=== PATIENT | female | born 1990 | race Caucasian/White ===

== ENCOUNTER 2021-01-06 09:59 | Emergency (ER) | payer OTHER, SELFPAY ==
[2021-01-06 10:00] VITALS: BP 110/68; PULSE 62; RESP 16; TEMP 37.8; O2SAT 90; BMI 41.8
[2021-01-06 10:08] VITALS: O2SAT 90
--- NOTE | 2021-01-06 10:23 | EDS_ITS ---
HPI History of Present Illness Chief Complaint: Shortness of Breath Narrative Narrative: Patient presents with cough and shortness of breath she indicates she was symptomatic with cough shortness of breath Sunday she had outpatient Covid test that was done was positive, she has been at home to indicates today the shortness of breath see more she checked her pulse ox at home pulse ox machine she has was 88% came in for evaluation, she has history of hypertension well-controlled no cardiopulmonary past history denies eating and drinking well with some diarrhea no other complaints on exam here her pulse ox is 90% she is awake and alert dry cough temperature is 100 clinically she looks well and she is not coughing [facility] Medical History (Updated 01/06/21 @ 11:[address] Elvis Hsieh MD) ADHD Hypertension Home Medications amlodipine 10 mg PO DAILY 12/01/14 [History Last Taken Unknown] dextroamphetamine-amphetamine [Adderall 30 mg Tablet] 0 mg PO DAILY 12/01/14 [History Last Taken Unknown] hydrochlorothiazide 25 mg PO DAILY 12/01/14 [History Last Taken Unknown] dexamethasone [Decadron] 6 mg PO DAILY #10 tab 01/06/21 [Rx Last Taken Unknown] Allergy/AdvReac Type Severity Reaction Status Date / Time moxifloxacin HCl Allergy Swelling Verified 08/17/16 09:45 [From Avelox] Surgical History (Updated 01/06/21 @ 10:09 by Tammy Nazario) History of hysterectomy Social History Smoking Status: Never smoker ROS [facility] ED Constitutional Constitutional ED: Reports fever(s), subjective, sweats and other; Denies chills or weight loss Eyes Eyes: Denies blurry vision or change in vision ENT ENT ED: Denies ear pain Cardiovascular Cardiovascular: Denies chest pain or palpitations Respiratory/Chest Respiratory/Chest: Reports dry cough and dyspnea Gastrointestinal Gastrointestinal: Reports diarrhea; Denies abdominal pain, nausea or vomiting Genitourinary Genitourinary ED: Denies dysuria or hematuria Musculoskeletal Musculoskeletal: Denies arthralgias or myalgias Integumentary Reports rash; Denies abscess Neurologic Neurologic: Denies weakness Psychiatric Psychiatric: Denies anxiety or depression Endocrine Endocrinology: Denies polydipsia or polyuria Allergic/Immunologic Allergic/Immunologic ED: Denies urticaria EXAM Physical Exam Const Vital Signs: 01/06/21 10:00 01/06/21 10:08 Temperature 100.0 F H Temperature Source Oral Pulse Rate 62 Respiratory Rate 16 Respiratory Effort Short of Breath Respiratory Depth Normal Respiratory Pattern Normal Blood Pressure 110/68 Blood Pressure Mean 82 Pulse Ox 90 Oxygen Delivery Method Room Air Room Air Positive well developed General Appearance ED: well developed HEENT Reports normocephalic Negative for trauma Eyes EOMs intact bilaterally Neck supple Chest Wall inspection of chest normal Resp normal respiratory effort Cardio regular rate GI non-tender and non-distended Back/Spine Back/Spine Narrative: unremarkable Extremity normal to inspection Neuro oriented x3 and CN's II-XII intact bilaterally Sensorium / Orientation: alert Psych mental status grossly normal Skin no rashes or lesions noted MDM MDM MDM Narrative Medical decision making narrative: Clinically patient looks well except for the harsh coughing, she is awake and alert discussed the timeframe with her last Sunday was day 1 she would be about 5 days into her illness at this time chest x-ray aerosols Tylenol she is eating and drinking well clinically she looks well except for the harsh cough will reassess her pulmonary oxygenation status after therapy Patient received MDI Proventil inhaler her chest x-ray shows findings consistent with Covid pneumonitis her pulse ox when she walked was 95% her baseline pulse ox here is between 90 to 95% discussed the findings with her discussed inpatient versus outpatient management is comfortable at home she will start Decadron therapy she is eligible potentially for monoclonal antibody therapy which she was referred for she has a pulse ox at home she knows how to self isolate take care of herself and return for change in symptoms Final impression COVID-19 pneumonia infection Radiography Diagnostic Testing: Clinical Impression(s) from Imaging Studies Chest X-Ray 01/06/21 10:55 IMPRESSION: Multifocal bilateral pulmonary infiltrates in the peripheral distribution suggestive of Covid pneumonitis. Electronically Signed: Lake Durbin MD at 11:09 EDT , Service support , Discharge Plan Triage Chief Complaint: Shortness of Breath ED Provider: Elvis Hsieh Dx/Rx/DC Orders Clinical Impression: COVID-19 Instructions: Coronavirus Disease 2019 (COVID-19): Overview Prescriptions: New dexamethasone [Decadron] 6 mg tablet 6 mg PO DAILY Qty: 10 RF: 0 No Action amlodipine 2.5 MG tablet 10 mg PO DAILY RF: 0 dextroamphetamine-amphetamine [Adderall] 30 MG tablet 0 mg PO DAILY RF: 0 hydrochlorothiazide 25 MG tablet 25 mg PO DAILY RF: 0 Other Ambulatory Orders: COVID Outpatient Monoclonal Antibody Referral (Routine) Timeframe: 1 Day Facility: [facility] - Location: [facility] Ordered By: Dr. Elvis Mcqueenyed Primary Care Provider: Domi Naidu Referrals: Domi Naidu MD [Primary Care Provider] -
[2021-01-06] MEDS: Acetaminophen 500 MG Tablet 1000 MG PO (10:41)
--- NOTE | 2021-01-06 10:55 | RAD_ITS ---
STUDY: X-RAY CHEST REASON FOR EXAM: Female, 30 years old. covid cough TECHNIQUE: PA and lateral views of the chest. COMPARISON: Comparison is made with prior study dated 12/04/2014. FINDINGS: EKG electrodes are seen. There now is evidence of a patchy bilateral pulmonary infiltrates in the peripheral distribution suggestive of Covid pneumonitis. There is no demonstrated pleural abnormality. Normal size heart. Normal mediastinum and terrell. Normal visualized pulmonary arteries. Normal visualized aortic arch and descending thoracic aorta. Normal visualized thoracic spine. Normal visualized ribs, clavicles, and shoulders. There is no demonstrated abnormality of the visualized soft tissue structures of the upper abdomen. RAD/Chest PA and Lateral IMPRESSION: Multifocal bilateral pulmonary infiltrates in the peripheral distribution suggestive of Covid pneumonitis. Electronically Signed: Lake Durbin MD at 11:09 EDT , Service support ,
[2021-01-06 11:32] VITALS: O2SAT 95
[2021-01-06] MEDS: dexAMETHasone 4 MG Tablet 6 MG PO (12:16)
[2021-01-06 12:20] VITALS: O2SAT 91
== END 2021-01-06 12:21 | disposition home or self-care (01) ==
LOC: ED 10:54
PROVIDERS: Emergency Provider Emergency Medicine; PCP Internal Medicine
DX: U07.1 COVID-19 (principal); I10 Essential (primary) hypertension; F90.9 Attention-deficit hyperactivity disorder, unspecified type; Z79.52 Long term (current) use of systemic steroids
CPT/HCPCS: 71046; 99283

== ENCOUNTER 2022-08-19 20:23 | Emergency (ER) | payer BC, SELFPAY ==
[2022-08-19 20:23] VITALS: BP 202/147; PULSE 88; RESP 18; TEMP 36.8; O2SAT 100
--- NOTE | 2022-08-19 20:40 | RAD_ITS ---
STUDY: X-RAY - LEFT ANKLE REASON FOR EXAM: Female, 32 years old. trauma TECHNIQUE: 3 view(s) of the ankle. COMPARISON: None. FINDINGS: Marked lateral soft tissue swelling. Tiny chip fracture seen off of the tip of the lateral malleolus. No other acute abnormalities. Normal visualized distal tibia and fibula. Normal medial and lateral malleoli. Normal tibiotalar articulation and ankle mortise. Normal visualized talus and calcaneus. The visualized subtalar, talonavicular, calcaneocuboid and tarsal articulations are normal. RAD/Ankle min 3 Views IMPRESSION: Marked lateral soft tissue swelling. Tiny chip fracture seen off of the tip of the lateral malleolus. Electronically Signed: Nicolas Peterson MD at 21:12 EDT ,
--- NOTE | 2022-08-19 20:54 | EX.ED.DYSGE1 ---
HPI History of Present Illness Chief Complaint: Lower Extremity Injury Narrative Narrative: Patient presents with left ankle pain after an inversion mechanism. She had a similar mechanism a few weeks ago but improved on her own. She also did not take her blood pressure medications this morning. She has pain. She has no knee pain or foot pain or any other injuries. [facility] Medical History (Updated 08/19/22 @ 21:[address] Tom Etienne MD) ADHD Hypertension Home Medications amlodipine 2.5 mg tablet 10 mg PO DAILY 12/01/14 [History Last Taken Unknown] dextroamphetamine-amphetamine 30 mg tablet (Adderall) 30 mg PO DAILY 12/01/14 [History Last Taken Unknown] hydrochlorothiazide 25 mg tablet 25 mg PO DAILY 12/01/14 [History Last Taken Unknown] losartan 50 mg tablet 50 mg PO DAILY 08/19/22 [History Last Taken Unknown] naproxen 500 mg tablet (Naprosyn) 500 mg PO BID PRN pain #20 tabs 08/19/22 [Rx Last Taken Unknown] semaglutide 1 mg/dose (4 mg/3 mL) subcutaneous pen injector (Ozempic) 1 mg subcut QWEEK 08/19/22 [History Last Taken Unknown] Allergy/AdvReac Type Severity Reaction Status Date / Time moxifloxacin HCl Allergy Swelling Verified 08/19/22 20:25 [From Avelox] Surgical History (Updated 01/06/21 @ 10:09 by Tammy Nazario) History of hysterectomy Social History Smoking Status: Never smoker ROS ROS ED ROS Narrative Past medical history: Hypertension Medications: Reviewed Social history: Noncontributory Review of systems: Musculoskeletal: Left ankle pain as in HPI Skin: No abrasions or lacerations Neurological: No weakness or paresthesias Hematologic: No easy bleeding or easy bruising EXAM Physical Exam Narrative Exam Narrative: Physical exam General: Patient does not appear in significant distress . She is hypertensive but did not take her blood pressure medications this morning. Head: Normocephalic, Atraumatic Neck: No C-spine tenderness Cardiovascular: Normal distal pulses Back: Nontender, Normal Inspection. Extremities: Left ankle is shows lateral malleolus swelling. No laxity. No proximal fifth metatarsal tenderness no proximal fibular tenderness. Neurovascularly intact Skin: No abrasions, no lacerations Neurological: Normal strength and sensation Const Vital Signs: 08/19/22 20:23 Temperature 98.3 F Temperature Source Temporal Pulse Rate 88 Respiratory Rate 18 Blood Pressure 202/147 H Blood Pressure Mean 165 Pulse Ox 100 Oxygen Delivery Method Room Air MDM MDM MDM Narrative Medical decision making narrative: I talked to patient's mom also giving some history. Patient has left ankle sprain. Left ankle x-ray read by me shows a very slight lateral malleolus avulsion fracture which is likely be equivalent of a sprain. She will be given a walking boot and discharged in stable condition. I will also refer to orthopedics. At this time I do not see a reason for a tib-fib x-ray or foot x-ray based on my exam. She was given analgesia in the ED. as far as hypertension is concerned, patient did not have r take her antihypertensives, she told me she has them in her purse so she took them in front of me. We addressed that this way she was also in pain and I gave her analgesics. Discharge Plan Triage Chief Complaint: Lower Extremity Injury ED Provider: Tom Etienne Dx/Rx/DC Orders Clinical Impression: Ankle sprain, Ankle pain, Hypertension, Avulsion fracture of ankle Instructions: ED Ankle Sprain (Adult) Prescriptions: New naproxen [Naprosyn] 500 mg tablet 500 mg PO BID PRN (Reason: pain) Qty: 20 0RF No Action amlodipine 2.5 MG tablet 10 mg PO DAILY dextroamphetamine-amphetamine [Adderall] 30 MG tablet 30 mg PO DAILY hydrochlorothiazide 25 MG tablet 25 mg PO DAILY losartan 50 mg tablet 50 mg PO DAILY Label Comments: take 1 tablet by mouth twice a day Ozempic 1 mg/dose (4 mg/3 mL) pen injector 1 mg SUBCUT QWEEK Label Comments: inject 1 milligram subcutaneously every week Rx Instructions: Sunday Primary Care Provider: Domi Naidu Referrals: Domi Naidu MD [Primary Care Provider] - Hank Ojeda MD [Med Staff - Active Staff] - 3-5 Days Disposition Disposition: Home, Self Care
[2022-08-19 22:04] VITALS: BMI 48.7
== END 2022-08-19 22:05 | disposition home or self-care (01) ==
LOC: ED 21:15
PROVIDERS: Emergency Provider Emergency Medicine; PCP Internal Medicine; Referring Provider Emergency Medicine; Visit Provider Emergency Medicine
DX: S93.402A Sprain of unspecified ligament of left ankle, initial encounter (principal); I10 Essential (primary) hypertension; M25.572 Pain in left ankle and joints of left foot; F90.9 Attention-deficit hyperactivity disorder, unspecified type; Z79.899 Other long term (current) drug therapy; X58.XXXA Exposure to other specified factors, initial encounter
CPT/HCPCS: 73610; 99283

== ENCOUNTER 2023-10-28 20:15 | Inpatient (IN) | payer BC, SELFPAY ==
[2023-10-28 20:17] VITALS: BP 207/122; PULSE 91; RESP 18; TEMP 35.8; O2SAT 98; BMI 52.4
--- NOTE | 2023-10-28 20:42 | CT_ITS ---
INDICATION: left side paraesthesias and weakness EXAMINATION: CT BRAIN WITHOUT CONTRAST, CTA HEAD, AND CTA NECK TECHNIQUE: Noncontrast axial images were obtained of the brain. Subsequently, routine carotid CT angiogram protocol was performed without and with IV contrast. In addition, images were obtained of the [place]. NASCET criteria using the distal ICAs for comparison were used for evaluation of stenoses. 3D reconstructions were reviewed. The protocol utilizes one or more of the following dose reduction techniques: automated exposure control, adjustment of mA and/or kV according to patient size,and/or use of iterative reconstruction technique. IV Contrast dosage and agent: COMPARISON: FINDINGS: --CT BRAIN WITHOUT CONTRAST: BRAIN PARENCHYMA: No intra- or extra-axial hemorrhage. No evidence of acute infarct. No intracranial mass or mass effect. There is preservation of the kern/white matter interface. Posterior fossa structures are unremarkable. CSF SPACES: Appropriate for age. No hydrocephalus. Basal cisterns are patent. CALVARIUM, SKULL BASE, PARANASAL SINUSES AND MASTOID AIR CELLS: Clear. No discrete lytic or blastic abnormalities. --CTA NECK: AORTIC ARCH AND BRANCHES: Borderlining ascending aorta measuring 3.9 cm. RIGHT CCA: No occlusion, significant stenosis or dissection. RIGHT ICA: No occlusion, significant stenosis or dissection. LEFT CCA: No occlusion, significant stenosis or dissection. LEFT ICA: No occlusion, significant stenosis or dissection. RIGHT VERTEBRAL ARTERY: No occlusion, significant stenosis or dissection. LEFT VERTEBRAL ARTERY: Diffuse hypoplasia. NECK SOFT TISSUES: Unremarkable. --CTA HEAD: --Anterior circulation: ICAs: No significant stenosis at the intracranial/visualized segments. ACAs: Possible stenosis of the left A1 segment. ACOM: Present. MCAs: No significant stenosis at the visualized segments. --Posterior circulation: PCOMs: Patent on the left. Nonvisualization on the right. 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 There is an area of prominent vascularity in the left parietal lobe posterior segment possibly a vascular malformation BASILAR ARTERY: No significant stenosis. VERTEBRAL ARTERIES: Left vertebral artery appears to terminates as the PICA. No evidence of intracranial aneurysm or vascular malformation. CT/CTA Head AND Neck W/ Contrast IMPRESSION: There is an area of prominent vascularity in the left parietal lobe posterior segment suggesting a vascular malformation. Possible stenosis of the left A1 segment. Electronically Signed: Colin Carrasco DO at 22:20 EDT ,
--- NOTE | 2023-10-28 20:44 | EX.ED.DYSGE1 ---
HPI History of Present Illness Chief Complaint: Numb/Ting Detail of Chief Complaint: Left-sided paresthesias and weakness Informant: patient Narrative Narrative: Patient presents with left-sided paresthesias and weakness that started yesterday. Patient states that she did not take her blood pressure medicine yesterday and went to a libertarian and ate pork and salt. Patient then noted that she had some numbness to the left side of her face and then the entire left side of her body went numb and had a hard time walking because the left side felt weak. Patient went to [facility] where there was a long wait and they triaged her but did not get seen otherwise and did not have any testing done. She went home and woke up this morning continues to feel bad and comes in for evaluation. Patient states that the symptoms are now triggered when she is sitting is when they started and they last about 8 minutes at a time. She denies any significant headache. She has no falls. She did take her blood pressure medicine today. She was hypertensive yesterday apparently at ER with systolic of 194 and diastolic in the 120s. Initial blood pressure on arrival to our ER was blood pressure 207/122. No family history of brain tumors or aneurysms. [facility] Medical History (Updated 10/28/23 @ 22:[address] Rachael Boykin, DO) ADHD Hypertension Home Medications ?Medication ?Instructions ?Recorded ?Last Taken ?Type amlodipine 2.5 mg tablet 10 mg PO DAILY 12/01/14 Unknown History dextroamphetamine-amphetamine 30 30 mg PO DAILY 12/01/14 Unknown History mg tablet (Adderall) hydrochlorothiazide 25 mg tablet 25 mg PO DAILY 12/01/14 Unknown History losartan 50 mg tablet 50 mg PO DAILY 08/19/22 Unknown History naproxen 500 mg tablet (Naprosyn) 500 mg PO BID PRN pain #20 tabs 08/19/22 Unknown Rx semaglutide 1 mg/dose (4 mg/3 mL) 1 mg subcut QWEEK 08/19/22 Unknown History subcutaneous pen injector (Ozempic) Allergy/AdvReac Type Severity Reaction Status Date / Time moxifloxacin HCl (From Allergy Swelling Verified 10/28/23 20:17 Avelox) Surgical History (Updated 01/06/21 @ 10:09 by Tammy Nazario) History of hysterectomy Social History Smoking Status: Never smoker ROS ROS ED Review of Systems ROS Unobtainable: other Constitutional Constitutional ED: Reports lethargy; Denies chills, fever(s), sweats or weight loss Eyes Eyes: Denies blurry vision, change in vision or diplopia ENT ENT ED: Denies rhinorrhea or sore throat Cardiovascular Cardiovascular: Denies chest pain, orthopnea or racing heartbeat Respiratory/Chest Respiratory/Chest: Denies cough, dyspnea, dyspnea on exertion, orthopnea or sputum Gastrointestinal Gastrointestinal: Denies abdominal pain, diarrhea, nausea or vomiting Genitourinary Genitourinary ED: Denies dysuria, hematuria or urinary frequency Musculoskeletal Musculoskeletal: Denies arthralgias, back pain, myalgias or neck pain Integumentary Denies abscess, Abrasions or rash Neurologic Neurologic: Reports paresthesias and weakness; Denies headache(s) Psychiatric Psychiatric: Denies anxiety, depression or suicidal thoughts Endocrine Endocrinology: Denies polydipsia, polyphagia or polyuria Hematologic/Lymphatic Hematologic/Lymphatic: Denies easy bleeding, easy bruising or lymphadenopathy Allergic/Immunologic Allergic/Immunologic ED: Denies mouth swelling, tongue swelling or urticaria EXAM Physical Exam Const Vital Signs: 10/28/23 20:17 10/28/23 21:56 Temperature 96.4 F L Temperature Source Temporal Pulse Rate 91 78 Respiratory Rate 18 18 Blood Pressure 207/122 H 158/107 H Blood Pressure Mean 150 124 Pulse Ox 98 96 Oxygen Delivery Method Room Air Room Air Positive well nourished and well developed General Appearance ED: well developed and NAD HEENT Reports TM's clear and moist mucous membranes normocephalic and atraumatic; Negative for trauma or tenderness Tympanic Membrane ED: Yes TM's clear Eyes PERRL and EOMs intact bilaterally General Eye ED: Negative for pale conjunctiva or scleral icterus Neck no lymphadenopathy, supple and no JVD General: Negative for tenderness Chest Wall inspection of chest normal and palpation of chest normal Chest: Negative for tenderness Resp normal respiratory effort and clear to auscultation bilaterally Effort and Inspection: Negative for respiratory distress or pain with movement Auscultation: Negative for rhonchi, wheezes or diminished lung sounds Cardio regular rate, regular rhythm, S1 normal heart sound, S2 normal heart sound and no murmurs Peripheral Pulses: pulses 2+ throughout GI normal to inspection, nondistended, normoactive bowel sounds, soft to palpation, non-tender, non-distended and no masses Back/Spine no CVA tenderness and no thoracic nor lumbar tenderness Extremity normal to inspection Extremity Narrative: No focal weakness noted on exam. Finger-nose and heel zelaya testing within normal limits, negative Romberg, negative for drift, fundi benign General Extremety ED: Negative for edema General Extremity: Negative for edema Neuro oriented x3, CN's II-XII intact bilaterally, no sensory deficits noted and gait normal Sensorium / Orientation: awake, alert, oriented to person, oriented to place and oriented to time Motor Exam: strength 5/5 throughout and strength abnormal Psych mental status grossly normal Skin no rashes or lesions noted and no wounds MDM MDM MDM Narrative Medical decision making narrative: Patient presents to the emergency department with vague complaints of left-sided weakness and paresthesias that have been intermittent. She has had elevated blood pressures. Patient has not had symptoms like this before. No family history of brain tumors or aneurysms or history of MS. Denies tick bites or rashes. Denies falls or injuries. IV line established. CBC with differential count of 10.3 with hemoglobin 13.4 and platelet count of 410. Chemistries unremarkable. Talk screen positive for amphetamines but she does take Adderall for ADHD. Patient had a CTA of the head and neck that showed area of prominent vascularity in the left parietal lobe which could represent an AV malformation. No other acute findings noted. There was possible stenosis of the left A1 segment. I did discuss case with neurology Dr. Sagastume who recommended admission for MRI. Will discuss with hospitalist to evaluate patient for admission. I will start patient on baby aspirin. Lab Data Attestation: I reviewed the patient's lab results. Labs: Laboratory Results - last 24 hr 10/28/23 10/28/23 20:49 20:55 WBC 10.3 RBC 5.46 H Hgb 13.4 Hct 42.5 MCV 77.8 L MCH 24.5 L MCHC 31.5 L RDW Std Deviation 42.8 RDW Coeff of Pily 15.6 H Plt Count 410 MPV 9.7 Immature Gran % (Auto) 0.500 Neut % (Auto) 61.3 Lymph % (Auto) 29.2 [place] % (Auto) 6.6 Eos % (Auto) 1.9 Baso % (Auto) 0.5 Absolute Neuts (auto) 6.3 Absolute Lymphs (auto) 3.00 Nucleated RBC % 0 Sodium 138 Potassium 3.9 Chloride 103 Carbon Dioxide 30.0 Anion Gap 5 BUN 10 Creatinine 0.57 Estim Creat Clear Calc 221.52 Est GFR (MDRD) Af Amer 155 Est GFR (MDRD) Non-Af 128 BUN/Creatinine Ratio 17.5 Glucose 98 Calcium 9.1 Urine Opiates Screen NEGATIVE Urine Methadone Screen NEGATIVE Ur Barbiturates Screen NEGATIVE Ur Phencyclidine Scrn NEGATIVE Ur Amphetamines Screen POSITIVE H MDMA (Ecstasy) Screen NEGATIVE U Benzodiazepines Scrn NEGATIVE Urine Cocaine Screen NEGATIVE U Cannabinoids Screen NEGATIVE Ur Drug Screen Comment Radiography Diagnostic Testing: Clinical Impression(s) from Imaging Studies Head/Neck CTA 10/28/23 20:42 IMPRESSION: There is an area of prominent vascularity in the left parietal lobe posterior segment suggesting a vascular malformation. Possible stenosis of the left A1 segment. Electronically Signed: Colin Carrasco DO at 22:20 EDT Reading Location ID and State: [facility] / [place] Tel [phone], Service support , Discharge Plan Dx/Rx/DC Orders Clinical Impression: Paresthesias, Hypertension Disposition Disposition: Acute Care [facility]
[2023-10-28 20:56] LABS: Absolute Neutrophil Count 6.3 X10^3/uL (2.0-7.7); Basophil# 0.05 X10^3/uL; Basophil% 0.5 % (0-1); Eosinophil# 0.19 X10^3/uL; Eosinophils% 1.9 % (0-5); Hematocrit 42.5 % (37-47); Hemoglobin 13.4 g/dL (12.0-15.0); Lymphocyte % 29.2 % (19-41); Mean Corp Hgb Conc 31.5 g/dL (32-36); Mean Corpuscular Hgb 24.5 pg (27.0-32.0); Mean Corpuscular Volume 77.8 fL (81-99); Mean Platelet Vol. 9.7 fl (6.2-12.0); Monocyte# 0.68 X10^3/uL; Monocyte% 6.6 % (0-10); NRBC Flagged by Analyzer 0 % (0-5); Neutrophil # 6.29 X10^3/uL (2.7-7.7); Neutrophil % 61.3 % (47-70); Platelet Count 410 K/mm3 (150-450); RBC Distribution Width CV 15.6 % (11.6-14.6); RBC Distribution Width SD 42.8 fl (35.1-43.9); Red Blood Count 5.46 M/mm3 (4.2-5.4); White Blood Count 10.3 K/mm3 (4.4-11.0)
[2023-10-28 21:16] LABS: Anion Gap 5 (5-15); BUN 10 mg/dL (7-18); BUN/Creat Ratio 17.5 RATIO (10-20); Calcium,Total 9.1 mg/dL (8.5-10.1); Chloride 103 mmol/L (98-107); Creatinine, Serum 0.57 mg/dL (0.55-1.02); EST Glomerular Filtration Rate 128 mL/min (>60); Est Glom Filt Rate - Afr Amer 155 mL/min (>60); Estimated Creatinine Clearance 221.52 ml/min; Glucose 98 mg/dL (74-106); Potassium 3.9 mmol/L (3.5-5.1); Sodium Level 138 mmol/L (136-145)
[2023-10-28 21:48] LABS: Vista UDS pH Range 5
[2023-10-28 21:49] LABS: Amphetamine Urine VISTA POSITIVE (<1000 ng/mL); Barbiturate Urine VISTA NEGATIVE (< 200 ng/mL); Benzodiazepine Urine VISTA NEGATIVE (< 200 ng/mL); Cocaine Urine VISTA NEGATIVE (< 300 ng/mL); Ecstacy Urine VISTA NEGATIVE (< 500 ng/mL); Methadone Urine VISTA NEGATIVE (< 300 ng/mL); PCP Urine VISTA NEGATIVE (< 25 ng/mL); THC Urine VISTA NEGATIVE (< 50 ng/mL)
[2023-10-28] MEDS: 0.9% Normal Saline (1000mL) 1,000 ML 150 ML IV (21:55)
[2023-10-28 21:56] VITALS: BP 158/107; PULSE 78; RESP 18; O2SAT 96
--- NOTE | 2023-10-28 23:10 | HP.PCM.HOS_ITS ---
[facility] - General General Date of Admission: 10/28/23 Date of Service: 10/28/23 Chief Complaint: Left-sided numbness and weakness. [facility] Narrative ONEIDA FUENTES, is a 33 F who presents with left-sided numbness. This is a 33-year-old female with hypertension ADHD who yesterday did not take all of her blood pressure medications intentionally because she is getting go to a alliance party and have some alcohol. She had just 1 tequila sunrise, no other drugs and no caffeinated beverages yesterday and while she was at the alliance party started experiencing left-sided numbness. The numbness began below her nose and all down her left side. The symptoms went away in several minutes only to recur several more times. She went to an outside ER was noted that her blood pressure was in the 190s systolic but there was a 3-hour wait and she did not wish to wait and went home. When she woke this morning, she still had that left-sided numbness and also some weakness in her arm and leg her left side. Again it would come and go. She came at the behest of family members. She came to the emergency room here where she underwent head and neck CTA that showed no acute process. Urine drug screen showed amphetamines (patient does take Adderall). Blood pressure was in the 180s to 190s. The ED physician spoke with Dr. Candelario, who recommended further stroke evaluation. Patient herself denies ever having had the symptoms before yesterday. She denies any headaches. She also states that when she has this numbness that she has some blurred vision in her left eye. [facility] Medical History (Updated 10/28/23 @ 23:[address] Remberto Mas, DO) Class 3 obesity ADHD Hypertension Home Medications ?Medication ?Instructions ?Recorded ?Last Taken ?Type amlodipine 2.5 mg tablet 10 mg PO DAILY 12/01/14 Unknown History dextroamphetamine-amphetamine 30 30 mg PO DAILY 12/01/14 Unknown History mg tablet (Adderall) hydrochlorothiazide 25 mg tablet 25 mg PO DAILY 12/01/14 Unknown History losartan 50 mg tablet 50 mg PO DAILY 08/19/22 Unknown History semaglutide 1 mg/dose (4 mg/3 mL) 1 mg subcut QWEEK 08/19/22 Unknown History subcutaneous pen injector (Ozempic) dextroamphetamine-amphetamine 10 10 mg PO DAILY add 10/28/23 Unknown History mg tablet Allergy/AdvReac Type Severity Reaction Status Date / Time moxifloxacin HCl (From Allergy Swelling Verified 10/28/23 20:17 Avelox) Surgical History History of hysterectomy Social History (Updated 10/28/23 @ 23:[address] Remberto Mas DO) Smoking Status: Never smoker alcohol intake: current alcohol intake frequency: holidays/special occasions only substance use type: does not use ROS ROS Narrative Does have an impacted left lower wisdom tooth that does cause her pain on occasion. All review of systems were negative except as mentioned above in the history of present illness and the other review of systems. Vital Signs Vital Signs Vital Signs: 10/28/23 20:17 10/28/23 21:56 Temperature 35.8 C L Temperature Source Temporal Pulse Rate 91 78 Respiratory Rate 18 18 Blood Pressure 207/122 H 158/107 H Blood Pressure Mean 150 124 Pulse Ox 98 96 Oxygen Delivery Method Room Air Room Air Weight Weight: 156.399 kg Body Mass Index (BMI) 52.4 Physical Exam Const alert, oriented x3 and no apparent distress Constitutional Narrative: Nontoxic. Pleasant. HEENT normocephalic, head/scalp atraumatic, hearing grossly normal bilaterally, moist oral mucous membranes and oropharynx normal Eyes PERRL and EOMs intact bilaterally Eyes Narrative: No icterus Neck no lymphadenopathy Neck Narrative: No thyromegaly Resp normal respiratory effort, no retractions, no use of accessory muscles and clear to auscultation bilaterally Cardio regular rate, regular rhythm, S1 normal heart sound and S2 normal heart sound GI normal to inspection, nondistended, normoactive bowel sounds, soft to palpation, non-tender and non-distended Extremity normal to inspection and no clubbing, cyanosis or edema Neuro oriented x3, CN's II-XII intact bilaterally and moves all extremities Neuro Narrative: Muscle strength is 5 out of 5 in upper extremities bilaterally and right lower extremity. Did have slight drift to the left however. [id number] was intact on the right and did not ever have such slight ataxia with the left Sensorium / Orientation: awake, alert, oriented to person, oriented to place and oriented to time Coordination / Balance: [id number] test normal Psych affect normal Results Lab / Micro Data Attestation: I reviewed the patient's lab results. 10/28/23 20:49 10/28/23 20:49 Labs: Laboratory Results - last 24 hr 10/28/23 20:49: WBC 10.3, RBC 5.46 H, Hgb 13.4, Hct 42.5, MCV 77.8 L, MCH 24.5 L , MCHC 31.5 L, RDW Std Deviation 42.8, RDW Coeff of Pily 15.6 H, Plt Count 410, MPV 9.7, Immature Gran % (Auto) 0.500, Neut % (Auto) 61.3, Lymph % (Auto) 29.2, Shannon % (Auto) 6.6, Eos % (Auto) 1.9, Baso % (Auto) 0.5, Absolute Neuts (auto) 6.3, Absolute Lymphs (auto) 3.00, Nucleated RBC % 0, Sodium 138, Potassium 3.9, Chloride 103, Carbon Dioxide 30.0, Anion Gap 5, BUN 10, Creatinine 0.57, Estim Creat Clear Calc 221.52, Est GFR (MDRD) Af Amer 155, Est GFR (MDRD) Non-Af 128, BUN/Creatinine Ratio 17.5, Glucose 98, Calcium 9.1 10/28/23 20:55: Urine Opiates Screen NEGATIVE, Urine Methadone Screen NEGATIVE, Ur Barbiturates Screen NEGATIVE, Ur Phencyclidine Scrn NEGATIVE, Ur Amphetamines Screen POSITIVE H, MDMA (Ecstasy) Screen NEGATIVE, U Benzodiazepines Scrn NEGATIVE, Urine Cocaine Screen NEGATIVE, U Cannabinoids Screen NEGATIVE, Ur Drug Screen Comment Imaging Radiology Impression Head/Neck CTA 10/28/23 20:42 IMPRESSION: There is an area of prominent vascularity in the left parietal lobe posterior segment suggesting a vascular malformation. Possible stenosis of the left A1 segment. Electronically Signed: Colin Carrasco DO at 22:20 EDT Reading Location ID and State: [facility] / [place] Tel [phone], Service support , Assessment & Plan Assessment/Plan (1) Paresthesias: PLAN: Began on October 26 and waxes and wanes but still has some residual slight left-sided weakness and paresthesia. Atypical presentation for stroke, however that still could be a possibility. Other possibilities could be vasospasm. Patient does take Adderall which theoretically could cause arterial vasospasms. No headache to suggest some migraine variant. And patient is never had seizures and so this does not suggest any kind of focal type seizure. Plan: Stroke workup with an MRI of the brain, 2D echocardiogram, therapy evaluations. Patient will continue with aspirin. Neurology consultation. (2) Hypertensive urgency: PLAN: Has been ongoing. Patient is hypertensive at baseline and takes amlodipine, HCTZ and losartan. She did recently cut back on some those medications because of her going to a alliance party and was concerned about interaction with that. Being that her symptoms are just waxing and waning and began yesterday, will resume her medications beginning October 28. Patient also have as needed labetalol and hydralazine. PLAN: Plan Chronic conditions * ADHD: Hold Adderall for now. * Obesity class III: Patient takes semaglutide but has been having issues due to supply so she has not been taking it regularly. Complicates care and recovery. Prophylaxis with enoxaparin.
[2023-10-28 23:19] VITALS: BP 178/104; PULSE 82; RESP 18; TEMP 36.6; O2SAT 97
--- NOTE | 2023-10-28 23:39 | ECHOCS_ITS ---
Reason For Study: TIA/CVA Procedure This was a 2D Doppler, Color Flow transthoracic echocardiogram. The study was technically difficult. Contrast injection was performed. Exam performed portable in patient room. Left Ventricle Normal LV size. Left ventricular systolic function is normal. The left ventricular ejection fraction is 65 %. Normal diastology for age. No regional wall motion abnormalities noted. Right Ventricle Normal RV size. Normal systolic function. Atria Normal left atrium. Normal right atrium. Bubble contrast study negative for right to left interatrial shunt. Mitral Valve Normal mitral valve. Tricuspid Valve Normal tricuspid valve. Aortic Valve The aortic valve is not well visualized. Pulmonic Valve Normal pulmonic valve. Great Vessels Normal aortic root. The pulmonary artery is normal size. Inferior vena cava collapse with respiration. Pericardium/Pleural No pericardial effusion. Medication Performed a rapid injection of agitated mix of 9 cc saline and 1cc air to assess for atrial septal defect. Diluted definity 1ml given slow IV push to enhance endocardial definition. MMode/2D Measurements & Calculations LVIDd: 4.2 cm IVSd: 1.6 cm LVOT diam: 2.2 cm LVIDs: 2.6 cm LVPWd: 1.3 cm RVDd: 3.7 cm FS: 37.6 % LVOT area: 3.9 cm2 Ao root diam: 3.5 cm LAV(MOD-bp): 62.0 ml LVAd ap4: 36.7 cm2 LAV(MOD-bp) Indexed: 24.1 ml/m2 LVLd ap4: 9.0 cm LAV(MOD-sp2): 63.8 ml EDV(MOD-sp4): 117.6 ml LAV(MOD-sp4): 58.3 ml EDV(sp4-el): 127.7 ml LVAs ap4: 18.8 cm2 LVLs ap4: 6.5 cm ESV(MOD-sp4): 44.0 ml ESV(sp4-el): 46.4 ml EF(MOD-sp4): 62.5 % EF(sp4-el): 63.6 % LVAd ap2: 37.7 cm2 SV(MOD-sp4): 73.5 ml SV(MOD-sp2): 66.3 ml LVLd ap2: 9.5 cm EDV(MOD-sp2): 117.0 ml EDV(sp2-el): 127.3 ml LVAs ap2: 23.1 cm2 LVLs ap2: 8.4 cm ESV(MOD-sp2): 50.7 ml ESV(sp2-el): 54.1 ml EF(MOD-sp2): 56.6 % SV(sp4-el): 81.2 ml LA dimension(2D): 4.3 cm LA A4 area: 20.5 cm2 RA A4 area: 16.1 cm2 TAPSE: 2.0 cm Time Measurements MV dec time: 0.25 sec Doppler Measurements & Calculations MV E max darion: 97.0 cm/sec Lat Peak E' Darion: 8.6 cm/sec Med Peak E' Darion: 8.3 cm/sec MV A max darion: 79.8 cm/sec E/E' lat: 11.3 E/E' med: 11.6 MV E/A: 1.2 Ao V2 max: 153.9 cm/sec LV V1 max: 123.2 cm/sec MV dec slope: 386.2 cm/sec2 Ao max P.5 mmHg LV V1 max P.1 mmHg Ao V2 mean: 111.4 cm/sec LV V1 mean P.7 mmHg Ao mean P.6 mmHg LV V1 mean: 90.4 cm/sec Ao V2 VTI: 34.4 cm LV V1 VTI: 27.6 cm AV (velocity ratio): 0.80 FELECIA(I,D): 3.2 cm2 FELECIA(V,D): 3.1 cm2 SV(LVOT): 108.3 ml PA V2 max: 103.9 cm/sec PA max PG (full): 1.3 mmHg ECHO/Echo Complete W/ Contrast Interpretation Summary Normal LV size. Left ventricular systolic function is normal. The left ventricular ejection fraction is 65 %. Bubble contrast study negative for right to left interatrial shunt. Contrast injection was performed. Ordering Physician: Remberto Mas Performed By: Mayra Sheppard RDCS
[2023-10-28 23:44] VITALS: BMI 52.2
[2023-10-29] VITALS: BP 169/119; PULSE 88; RESP 20; TEMP 36.5; O2SAT 97; O2SAT 98
[2023-10-29] MEDS: Aspirin 81 MG TAB.CHEW PO ×2 (00:06→09:26)
[2023-10-29 00:20] VITALS: BMI 52.2
[2023-10-29 07:04] LABS: Cholesterol 164 mg/dL (200); High Density Lipoprotein 43 mg/dL; Triglycerides 257 mg/dL; Very Low Density Lipoprotein 51 mg/dL (5-40)
--- NOTE | 2023-10-29 07:29 | PN.HOSP_ITS ---
Reason for Visit Reason for Visit: Diagnoses Hypertensive urgency (10/28/23) Paresthesia of skin (10/28/23) Subjective Subjective Patient is a 33-year-old lady presenting with left-sided paresthesias and subjective weakness. Admitted to monitored bed for further management Objective Data Objective Data Vital Signs: Vital Signs Temp Pulse Resp BP Pulse Ox O2 Del Method 97.7 F L 88 20 H 169/119 H 97 Room Air 10/29/23 00:00 10/29/23 00:00 10/29/23 00:00 10/29/23 00:00 10/29/23 00:00 10/29/23 00:00 Oxygen Delivery Method Room Air Weight: 156 kg Body Mass Index (BMI) 52.2 Intake & Output: Intake and Output for Last 24 Hours 10/27/23 10/28/23 10/29/23 23:59 23:59 23:59 Intake Total 1000 / 1000 Balance 1000 / 1000 Lab / Micro Data 10/28/23 20:49 10/28/23 20:49 Labs: Laboratory Results - last 24 hr 10/28/23 20:49: WBC 10.3, RBC 5.46 H, Hgb 13.4, Hct 42.5, MCV 77.8 L, MCH 24.5 L , MCHC 31.5 L, RDW Std Deviation 42.8, RDW Coeff of Pily 15.6 H, Plt Count 410, MPV 9.7, Immature Gran % (Auto) 0.500, Neut % (Auto) 61.3, Lymph % (Auto) 29.2, Rogers % (Auto) 6.6, Eos % (Auto) 1.9, Baso % (Auto) 0.5, Absolute Neuts (auto) 6.3, Absolute Lymphs (auto) 3.00, Nucleated RBC % 0, Sodium 138, Potassium 3.9, Chloride 103, Carbon Dioxide 30.0, Anion Gap 5, BUN 10, Creatinine 0.57, Estim Creat Clear Calc 221.52, Est GFR (MDRD) Af Amer 155, Est GFR (MDRD) Non-Af 128, BUN/Creatinine Ratio 17.5, Glucose 98, Calcium 9.1 10/28/23 20:55: Urine Opiates Screen NEGATIVE, Urine Methadone Screen NEGATIVE, Ur Barbiturates Screen NEGATIVE, Ur Phencyclidine Scrn NEGATIVE, Ur Amphetamines Screen POSITIVE H, MDMA (Ecstasy) Screen NEGATIVE, U Benzodiazepines Scrn NEGATIVE, Urine Cocaine Screen NEGATIVE, U Cannabinoids Screen NEGATIVE, Ur Drug Screen Comment 10/29/23 05:56: Triglycerides 257 H, Cholesterol 164, LDL Cholesterol 70, VLDL Cholesterol 51 H, HDL Cholesterol 43 Radiography Diagnostic Testing: Radiology Impression Head/Neck CTA 10/28/23 20:42 IMPRESSION: There is an area of prominent vascularity in the left parietal lobe posterior segment suggesting a vascular malformation. Possible stenosis of the left A1 segment. Electronically Signed: Colin Carrasco DO at 22:20 EDT , Physical Exam Narrative GENERAL: cooperative HEENT: Atraumatic; normocephalic EYES; Anicteric, Normal Conjunctiva NECK; supple, normal thyroid, RESPIRATORY: Diminished to auscultation CARDIOVASCULAR: Regular S1 S2, GI: soft, normoactive bowel sounds, : No Renal angle tenderness; EXTREMITIES: No edema, no clubbing, MUSCULOSKELETAL: no muscle wasting NEURO: Awake; no lateralizing signs. SKIN: No Rash PSYCH; Flat affect Assessment & Plan Assessment/Plan PLAN: Plan Patient is a 33-year-old lady presenting with left-sided paresthesias and subjective weakness. Admitted to monitored bed for further management 1. Left-sided paresthesias and subjective weakness ? Patient has been admitted to a monitored bed currently undergoing stroke workup with every 4 neurochecks, MRI of the brain without contrast, 2D echo with consultation placed to neurology 2. Hypertension - Blood pressure controlled, home medications continued with dose adjustment as needed 3. Class III obesity with BMI of 52.3 ? Complicating care weight loss advised. Patient is on semaglutide as outpatient 4. ADHD ? Patient is on Adderall 5. DVT prophylaxis - On enoxaparin
--- NOTE | 2023-10-29 07:56 | MRI_ITS ---
HISTORY: left sided weakness. TECHNIQUE: Multiplanar and multisequence MR images of the brain were obtained before and after the intravenous administration of 30 mL Clariscan. 339 images. COMPARISON: CT prior day. FINDINGS: BRAIN PARENCHYMA: 8 mm x 2 cm tangle of vessels in the left parasagittal posterior parietal lobe with mild associated susceptibility artifact, likely old hemorrhage. Probable feeding artery from the left anterior cerebral/pericallosal artery branch and draining cortical vein. Small zone of encephalomalacia more superiorly. No abnormal focus of restricted diffusion. No enhancing mass in the brain parenchyma. CSF SPACES: Cerebral ventricles, cortical sulci, and other extra-axial CSF spaces within normal limits in size for age. No significant midline shift or other mass effect.No extra-axial fluid collection. VASCULAR SYSTEM: Major intracranial flow voids are maintained. PARANASAL SINUSES AND MASTOID AIR CELLS: No significant air fluid levels. ORBITS: Symmetric contents. 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 Mild adjacent encephalomalacia or old infarct. No evidence for acute infarct. Electronically Signed: Evelia Mckeon MD at 9:18 EDT ,
[2023-10-29] MEDS: Losartan Potassium 50 MG Tablet PO (09:26)
[2023-10-29] MEDS: Enoxaparin 40 MG/0.4 ML Syringe SC (09:26)
[2023-10-29] MEDS: hydroCHLOROthiazide 25 MG Tablet PO (09:26)
[2023-10-29] MEDS: amLODIPine 10 MG Tablet PO (09:27)
[2023-10-29 09:29] VITALS: BP 174/113; PULSE 70; RESP 16; TEMP 36.4; O2SAT 96
[2023-10-29 10:00] VITALS: BP 141/82; PULSE 84; RESP 16
[2023-10-29 10:02] VITALS: O2SAT 96
--- NOTE | 2023-10-29 10:04 | CT_ITS ---
HISTORY: Paresthesias. Left-sided weakness, hypertension. TECHNIQUE: Helically acquired images were obtained of the cervical spine without contrast. 2D reformatted images were reviewed. A radiation dose optimization technique was used for this scan. 426 images. COMPARISON: None. FINDINGS: VERTEBRAE: Limited evaluation due to artifact from body habitus. No definite acute fracture identified. ALIGNMENT: No significant anterior or posterior subluxation. Straightening of the cervical lordosis. INTERVERTEBRAL DISCS: Disc heights preserved. SOFT TISSUES: No prevertebral soft tissue swelling. CT/Spine Cervical without Contras IMPRESSION: No evidence for acute fracture or dislocation in the cervical spine. Electronically Signed: Evelia Mckeon MD at 10:59 EDT ,
--- NOTE | 2023-10-29 13:50 | CASEMGMT ---
PRABHU [facility]ILGORE Assessment: Face to Face with pt for initial transition planning/care coordination assessment. RN MAGUI introduced self and role at [facility], pt voices understanding and consents to assessment. Pt is A&O x4 and answers all questions appropriately at this time. Pt sitting up in bed in no distress. Care providers, pharmacy, and demographics verified/updated. Admitting Dx: L sided weakness, Hypertensive urgency. PCP: Elysia Specialists: Denies Preferred Pharmacy: [facility] Insurance: [place] Prescription Benefit: yes LNOK: Leyla, Friend Living Arrangements: Pt lives with Mom, partner and 3 children in a 2 story home with steps with hand rails to enter. Pt States I with ADLS and IADLs. Transportation: Pt drives self and denies concerns with transportation. DME: Denies HHC/SNF: Denies Pt states no concerns with going home at time of dc. Pt states no further concerns/needs. CM to follow. Advised pt to ask CM if any further question/concerns/needs arise, voices understanding. Pt Goal: Home Plan: Home with family support in place, CM to follow. Dasha Herrera RN, CM.
--- NOTE | 2023-10-29 15:10 | NEURO.CONS ---
Assessment and Plan: Neuro Assessment/Plan ONEIDA FUENTES is a 33 F with HTN and ADHD who presents with 1 day of left sided tightness and intermittent numbness in the setting of elevated BP. Resolved symptoms with BP control. MRI neg other than incidental left frontal parietal AVM. Presentation of transient neurological issues associated with elevated BP in a relatively healthy young woman is more likely HTN crisis. Diagnosis: HTN crisis Plan: - BP control < 130/80 - CV risk factor optimization - Follow up with NSG for AVM - NO further recs. Neuro to sign off. I personally attended this patient and spent a total time of 45 minutes evaluating this patient including clinical assessment, review of chart, medical history imaging, and determining appropriate treatment and workup. HPI Consult Data Date of Consult: 10/29/23 HPI Narrative HPI Narrative: ONEIDA FUENTES, is a 33 F with HTN and ADHD who presents with 1 day of left sided tightness and intermittent numbness. She states that Sunday she was going to a constitution party so did not take her BP meds because she was planning to have a couple drinks. She went to a constitution party had 1-2 drinks and started feeling left sided tightness from face to leg and numbness. The tightness was constant but the numbness would come sporadically. They would last about 5 min and had about 5 episodes. She went to the ED on Sunday and they thought it was just due to ETOH and numbness had improved but tightness persisted. Sunday she woke up and had another episode and so she went back to the ED, and BP was elevated both these times. Patient improved with BP control. MRI brain was negative for acute stroke but found to have an incidental left frontal parietal AVM. No FH on neurological issues or heme issues None smoker, non rec drug user, occassional drinker [facility] Medical History Class 3 obesity ADHD Hypertension Home Medications ?Medication ?Instructions ?Recorded ?Last Taken ?Type amlodipine 2.5 mg tablet 5 mg PO BID bp 12/01/14 Unknown History dextroamphetamine-amphetamine 30 30 mg PO DAILY ADD 12/01/14 Unknown History mg tablet (Adderall) hydrochlorothiazide 25 mg tablet 25 mg PO DAILY bp 12/01/14 Unknown History losartan 50 mg tablet 50 mg PO BID hld 08/19/22 Unknown History semaglutide 1 mg/dose (4 mg/3 mL) 2 mg subcut QWEEK weight lose 08/19/22 10/28/23 History subcutaneous pen injector (Ozempic) dextroamphetamine-amphetamine 10 10 mg PO DAILY add 10/28/23 Unknown History mg tablet Allergy/AdvReac Type Severity Reaction Status Date / Time moxifloxacin HCl (From Allergy Swelling Verified 10/28/23 20:17 Avelox) Surgical History History of hysterectomy Social History (Updated 10/28/23 @ 23:[address] Remberto aMs, DO) Smoking Status: Never smoker alcohol intake: current alcohol intake frequency: holidays/special occasions only substance use type: does not use Vital Signs Vital Signs Vital Signs: 10/28/23 20:17 10/28/23 21:56 10/28/23 23:19 Temperature 96.4 F L 98 F Temperature Source Temporal Pulse Rate 91 78 82 Respiratory Rate 18 18 18 Blood Pressure 207/122 H 158/107 H 178/104 H Blood Pressure Mean 150 124 128 Blood Pressure Source Blood Pressure Position Blood Pressure Location Pulse Ox 98 96 97 Oxygen Delivery Method Room Air Room Air 10/29/23 00:00 10/29/23 00:00 10/29/23 09:29 Temperature 97.7 F L 97.5 F L Temperature Source Oral Oral Pulse Rate 88 70 Respiratory Rate 20 H 16 Blood Pressure 169/119 H 174/113 H Blood Pressure Mean 135 133 Blood Pressure Source Monitor Monitor Blood Pressure Position Semi-Fowlers Semi-Fowlers Blood Pressure Location Right Arm Left Arm Pulse Ox 98 97 96 Oxygen Delivery Method Room Air Room Air Room Air 10/29/23 10:00 10/29/23 10:02 Temperature Temperature Source Pulse Rate 84 Respiratory Rate 16 Blood Pressure 141/82 H Blood Pressure Mean 101 Blood Pressure Source Monitor Blood Pressure Position Right Lateral Blood Pressure Location Left Arm Pulse Ox 96 Oxygen Delivery Method Room Air Weight Weight: 156 kg Body Mass Index (BMI) 52.2 NIHSS NIHSS Nursing Documentation NIHSS Nursing Documentation: NIHSS: Ischemic Stroke/TIA Start: 10/28/23 23:39 Text: For PCU Patients: NIH and Neuro Check every 4 Status: Complete hours, PRN and with change in RN caregiver. Freq: [id number] Protocol: Activity Type Activity Date Activity User E-sign Co-sign Detail Recorded Client Recorded Date Recorded By Document 10/29/23 10:00 RV desktop 10/29/23 10:08 RV 10/29/23 10:00 NIH Stroke Scale [NIHSS] A score of 0 is normal or asymptomatic . Total possible score is 42. Inpatient: RN or Physician to activate a stroke alert for onset of new stroke symptoms or with NIHSS increase >/= 3 points. Following change in neurological status, NIHSS will be performed per physician order or more frequently PRN. -1a. Level of Consciousness Alert; keenly responsive -1b. LOC Questions Answers BOTH questions correctly. -1c. LOC Commands Performs both tasks correctly . -2. Best Gaze Normal -3. Visual No visual loss -4. Facial Palsy Normal symmetrical movements -5a. Left Arm No drift; arm holds 90 (or 45 ) degrees for full 10 seconds -5b. Right Arm No drift; arm holds 90 (or 45 ) degrees for full 10 seconds -6a. Left Leg No drift; leg holds 30-degree position for full 5 seconds -6b. Right Leg No drift; leg holds 30-degree position for full 5 seconds -7. Limb Ataxia Absent -8. Sensory Normal; no sensory loss -9. Best Language No aphasia; normal -10. Dysarthria Normal -11. Extinction and Inattention No abnormality -Total 0 Query Text:A score of 0 is normal or asymptomatic. Total possible score is 42 . ED: Notify Physician for NIHSS increase by > / = 3 points. Inpatient: RN or Physician to activate a stroke alert for NIHSS increase of > / = 3 points. Coma Scale [Assess] -Eye Opening Spontaneous -Motor Obeys Commands -Verbal Oriented [Total] -Coma Scale Total 15 Physical Exam Narrative General:?NAD, pleasant, cooperative, well nourished, well developed ?Head/Eyes:?Atraumatic, normocephalic, clear cornea, normal sclera/conjunctive ?ENT:?Moist mucous membrane, nose atraumatic/normal. ?Neck:?Full range of motion, supple/no meningismus, no masses or swelling ?Extremities:?Moves all, no edema. ?Skin:?Dry and intact ?Neuro: Mental Status: AAOX4 & following simple commands. Speech: Clear and fluent with good repetition, comprehension, & naming. No aphasia or dysarthria CN II: Visual epperson are full to confrontation. PERRL. CN III, IV, : EOMI, no gaze preference, no nystagmus, no ptosis CN V: Facial sensation is intact to light touch throughout. CN VII: Face is symmetric with normal eye closure and smile. CN VII: Hearing is grossly normal to conversational speech. CN IX, X: Palate elevates symmetrically and no uvula deviation CN XI: Head turning, and shoulder shrug are intact. CN XII: Tongue is midline with normal movements and no atrophy. Motor: Able to lift all limbs Sensation: Normal to light touch bilaterally. Coordination: Normal rapid alternating movements, FTN & HTS. No abn movements seen. Lab / Micro Data 10/28/23 20:49 10/28/23 20:49 Labs: Laboratory Results - last 24 hr 10/28/23 20:49: WBC 10.3, RBC 5.46 H, Hgb 13.4, Hct 42.5, MCV 77.8 L, MCH 24.5 L, MCHC 31.5 L, RDW Std Deviation 42.8, RDW Coeff of Pily 15.6 H, Plt Count 410, MPV 9.7, Immature Gran % (Auto) 0.500, Neut % (Auto) 61.3, Lymph % (Auto) 29.2, [place] % (Auto) 6.6, Eos % (Auto) 1.9, Baso % (Auto) 0.5, Absolute Neuts (auto) 6.3, Absolute Lymphs (auto) 3.00, Nucleated RBC % 0, Sodium 138, Potassium 3.9, Chloride 103, Carbon Dioxide 30.0, Anion Gap 5, BUN 10, Creatinine 0.57, Estim Creat Clear Calc 221.52, Est GFR (MDRD) Af Amer 155, Est GFR (MDRD) Non-Af 128, BUN/Creatinine Ratio 17.5, Glucose 98, Calcium 9.1 10/28/23 20:55: Urine Opiates Screen NEGATIVE, Urine Methadone Screen NEGATIVE, Ur Barbiturates Screen NEGATIVE, Ur Phencyclidine Scrn NEGATIVE, Ur Amphetamines Screen POSITIVE H, MDMA (Ecstasy) Screen NEGATIVE, U Benzodiazepines Scrn NEGATIVE, Urine Cocaine Screen NEGATIVE, U Cannabinoids Screen NEGATIVE, Ur Drug Screen Comment 10/29/23 05:56: Triglycerides 257 H, Cholesterol 164, LDL Cholesterol 70, VLDL Cholesterol 51 H, HDL Cholesterol 43 Imaging Radiology Impression Head/Neck CTA 10/28/23 20:42 IMPRESSION: There is an area of prominent vascularity in the left parietal lobe posterior segment suggesting a vascular malformation. Possible stenosis of the left A1 segment. Electronically Signed: Colin Carrasco DO at 22:20 EDT , Echocardiogram 10/28/23 23:39 Interpretation Summary Normal LV size. Left ventricular systolic function is normal. The left ventricular ejection fraction is 65 %. Bubble contrast study negative for right to left interatrial shunt. Contrast injection was performed. 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 Mild adjacent encephalomalacia or old infarct. No evidence for acute infarct. Electronically Signed: Evelia Mckeon MD at 9:18 EDT , Cervical Spine CT 10/29/23 10:04 IMPRESSION: No evidence for acute fracture or dislocation in the cervical spine. Electronically Signed: Evelia Mckeon MD at 10:59 EDT , Active Medications Active Medications Active Medications: Current Medications Generic Name Dose Route Start Last Admin Trade Name Freq PRN Reason Stop Dose Admin Acetaminophen 650 mg 10/28/23 23:39 Acetaminophen 325 Mg Tablet PO Q6H PRN PRN Pain 1-10 Or Fever >100.7 Amlodipine Besylate 10 mg 10/29/23 10:00 10/29/23 09:27 Amlodipine 10 Mg Tablet PO 10 mg DAILY ANTONINA Administration Protocol Aspirin 81 mg 10/29/23 08:00 10/29/23 09:26 Aspirin 81 Mg Tab.Chew PO 81 mg BREAKFAST ANTONINA Administration Enoxaparin Sodium 40 mg 10/29/23 10:00 10/29/23 09:26 Enoxaparin 40 Mg/0.4 Ml Syringe SC 40 mg BID ANTONINA Administration Hydralazine HCl 5 mg 10/28/23 23:39 Hydralazine 20 Mg/Ml Vial IV 10/29/23 23:39 Q30M PRN maintain BP parameters with HR <60 Hydrochlorothiazide 25 mg 10/29/23 10:00 10/29/23 09:26 Hydrochlorothiazide 25 Mg Tablet PO 25 mg DAILY ANTONINA Administration Protocol Sodium Chloride 250 mls @ 15 mls/hr 10/28/23 23:44 IV .[id number] PRN Additional IVPB Infusion Sodium Chloride 250 mls @ 15 mls/hr 10/28/23 23:44 IV .[id number] PRN Saline Flush Labetalol HCl 10 - 20 mg 10/28/23 23:39 Labetalol (Prefilled) 20 Mg/4 Ml IV 10/29/23 23:39 Q10M PRN PRN maintain BP parameters with HR >/=60 Losartan Potassium 50 mg 10/29/23 10:00 10/29/23 09:26 Losartan Potassium 50 Mg Tablet PO 50 mg DAILY ANTONINA Administration Protocol Ondansetron HCl 4 mg 10/28/23 23:39 Ondansetron 4 Mg/2 Ml Vial IV Q8H PRN PRN NAUSEA/VOMITING Sodium Chloride 10 - 40 ml 10/28/23 23:44 0.9% Saline Lock 10 Ml Syringe IV UD PRN SALINE FLUSH
--- NOTE | 2023-10-29 15:57 | CASEMGMT ---
Patient does not have a Healthcare POA or Healthcare LW and is not interested in documents. Lolis Butts [employer]
[2023-10-29 15:59] VITALS: BP 157/85; PULSE 85; RESP 18; TEMP 36.2; O2SAT 93
[2023-10-29 16:03] VITALS: PULSE 80
--- NOTE | 2023-10-29 16:19 | PCM.DC.SUM ---
Providers Date of Admission: 10/28/23 Primary Care Physician: Dr. Domi Naidu MD Consultations 10/28/23 23:39 Consult: Tele-Neurology Routine Consulting Provider: [facility] Reason for Consult: Acute Ischemic Stroke/TIA EMERGENT Consult: No MD Notified: Yes Date Notified: 10/29/23 Time Notified: 00:28 Method of Notification: Answering Service Nursing Unit Staff Notify [facility] of Tele-Neurology Consult: Yes Reason For Visit: LEFT SIDE WEAKNESS, HYPERTENSIVE URGENCY Diagnosis Discharge Diagnosis (1) Paresthesias: Status: Acute Code(s): R20.2 - Paresthesia of skin (2) Hypertensive urgency: Status: Acute Code(s): I16.0 - Hypertensive urgency Plan Patient is a 33-year-old lady presenting with left-sided paresthesias and subjective weakness. Admitted to monitored bed for further management 1. Left-sided paresthesias and subjective weakness ? Patient has been admitted to a monitored bed currently undergoing stroke workup with every 4 neurochecks, MRI of the brain without contrast, 2D echo with consultation placed to neurology -MRI neg other than incidental left frontal parietal AVM.. Patient was seen in consultation by neurology who recommended optimization of blood pressure management. CT of the cervical spine obtained was unremarkable - 2. Acute hypertensive crisis - Blood pressure was elevated on admission adjusted home meds 3. Class III obesity with BMI of 52.3 ? Complicating care weight loss advised. Patient is on semaglutide as outpatient 4. ADHD ? Patient is on Adderall 5. DVT prophylaxis - On enoxaparin Medications at Discharge Home Medications dextroamphetamine-amphetamine 30 mg tablet (Adderall) 30 mg PO DAILY ADD 12/01/14 hydrochlorothiazide 25 mg tablet 25 mg PO DAILY bp 12/01/14 losartan 50 mg tablet 50 mg PO BID hld 08/19/22 semaglutide 1 mg/dose (4 mg/3 mL) subcutaneous pen injector (Ozempic) 2 mg subcut QWEEK weight lose 08/19/22 dextroamphetamine-amphetamine 10 mg tablet 10 mg PO DAILY add 10/28/23 amlodipine 10 mg tablet 10 mg PO DAILY #90 tabs 10/29/23 hydralazine 25 mg tablet 25 mg PO BID #60 tabs 10/29/23 Hospital Course Summary of Care Provided Minutes Spent on Discharge: 32 Physical Exam Narrative GENERAL: cooperative HEENT: Atraumatic; normocephalic EYES; Anicteric, Normal Conjunctiva NECK; supple, normal thyroid, RESPIRATORY: Diminished to auscultation CARDIOVASCULAR: Regular S1 S2, GI: soft, normoactive bowel sounds, : No Renal angle tenderness; EXTREMITIES: No edema, no clubbing, MUSCULOSKELETAL: no muscle wasting NEURO: Awake; no lateralizing signs. SKIN: No Rash PSYCH; Flat affect Weight / BMI Weight Weight: 156 kg Body Mass Index (BMI) 52.2 ABG / Lab / Microbiology Data 10/28/23 20:49 10/28/23 20:49 Laboratory: Laboratory Results - last 24 hr 10/28/23 20:49: WBC 10.3, RBC 5.46 H, Hgb 13.4, Hct 42.5, MCV 77.8 L, MCH 24.5 L, MCHC 31.5 L, RDW Std Deviation 42.8, RDW Coeff of Pily 15.6 H, Plt Count 410, MPV 9.7, Immature Gran % (Auto) 0.500, Neut % (Auto) 61.3, Lymph % (Auto) 29.2, [place] % (Auto) 6.6, Eos % (Auto) 1.9, Baso % (Auto) 0.5, Absolute Neuts (auto) 6.3, Absolute Lymphs (auto) 3.00, Nucleated RBC % 0, Sodium 138, Potassium 3.9, Chloride 103, Carbon Dioxide 30.0, Anion Gap 5, BUN 10, Creatinine 0.57, Estim Creat Clear Calc 221.52, Est GFR (MDRD) Af Amer 155, Est GFR (MDRD) Non-Af 128, BUN/Creatinine Ratio 17.5, Glucose 98, Calcium 9.1 10/28/23 20:55: Urine Opiates Screen NEGATIVE, Urine Methadone Screen NEGATIVE, Ur Barbiturates Screen NEGATIVE, Ur Phencyclidine Scrn NEGATIVE, Ur Amphetamines Screen POSITIVE H, MDMA (Ecstasy) Screen NEGATIVE, U Benzodiazepines Scrn NEGATIVE, Urine Cocaine Screen NEGATIVE, U Cannabinoids Screen NEGATIVE, Ur Drug Screen Comment 10/29/23 05:56: Triglycerides 257 H, Cholesterol 164, LDL Cholesterol 70, VLDL Cholesterol 51 H, HDL Cholesterol 43 Radiography Diagnostic Testing: Radiology Impression Head/Neck CTA 10/28/23 20:42 IMPRESSION: There is an area of prominent vascularity in the left parietal lobe posterior segment suggesting a vascular malformation. Possible stenosis of the left A1 segment. Electronically Signed: Colin Carrasco DO at 22:20 EDT , Echocardiogram 10/28/23 23:39 Interpretation Summary Normal LV size. Left ventricular systolic function is normal. The left ventricular ejection fraction is 65 %. Bubble contrast study negative for right to left interatrial shunt. Contrast injection was performed. 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 Mild adjacent encephalomalacia or old infarct. No evidence for acute infarct. Electronically Signed: Evelia Mckeon MD at 9:18 EDT , Cervical Spine CT 10/29/23 10:04 IMPRESSION: No evidence for acute fracture or dislocation in the cervical spine. Electronically Signed: Evelia Mckeon MD at 10:59 EDT , D/C Instructions Discharge Diet: No restrictions Discharge Activity: Return to Normal Activity Call your doctor if you observe: Fever of 101 or Higher, Shortness of breath, Fainting spells and Chest pain Meaningful Use Info Meaningful Use Meaningful Use Diagnoses (Choose all that apply): None applicable Ischemic Stroke Statin Dosing Therapy Reference: STATIN DOSE THERAPY REFERENCE: * Patients > 75 years receive moderate or high dose statin therapy. * Patients 75 years or YOUNGER should receive HIGH intensity statin dose unless contraindicated. You will be required to document reason for non-treatment if statin daily dose does not meet guidelines. HIGH DOSE STATIN THERAPY DAILY Atorvastatin > than or = to 40 mg Rosuvastatin > than or = to 20 mg Amlodipine + Atorvastatin > than or = to 2.5/40 mg Ezetimibe + Simvastatin 10/80 mg Simvastatin 80mg Discharge Plan Admission Admit Date/Time: 10/28/23 22:46 Attending Provider: Lewis Heath Primary Care Provider: Domi Naidu Consulting Providers: Huang Child; Yony Prabhakar; Loni Wilkins; Cinthia Gage; Louisa Parra; Holden Watson; Madeline Medina; Raymond Wolff; Laurent Potter; Bassam Reddy; Yecenia Emery; Naeem Cramer; Sabra Eddy; Gurpreet Suarez; Grant Levy Sachin; Emmanuel Nuñez; Garcia Celeste; Panda Rose; Darby Cook; Kelsey Bond; Remberto Mas Discharge Orders/Prescriptions Prescriptions: New amlodipine 10 mg Tablet 10 mg PO DAILY Qty: 90 0RF hydralazine 25 mg tablet 25 mg PO BID Qty: 60 0RF Continued dextroamphetamine-amphetamine [Adderall] 30 MG tablet 30 mg PO DAILY hydrochlorothiazide 25 MG tablet 25 mg PO DAILY losartan 50 mg tablet 50 mg PO BID Patient Comments: take 1 tablet by mouth twice a day Ozempic 1 mg/dose (4 mg/3 mL) pen injector 2 mg SUBCUT QWEEK Patient Comments: inject 1 milligram subcutaneously every week Rx Instructions: Sunday dextroamphetamine-amphetamine 10 mg tablet 10 mg PO DAILY Patient Comments: TAKE 1 TABLET BY MOUTH EVERY DAY at noon Discontinued amlodipine 2.5 MG tablet 5 mg PO BID Referrals / Follow Up: Domi Naidu MD [Primary Care Provider] - Within 1 Week Disposition Disposition (needs filled in before D/C Order can be placed): Home, Self Care Charges/Coding Visit Charges Inpatient E&M: 00855 Disch Hosp >30min
== END 2023-10-29 17:01 | disposition home or self-care (01) | DRG 304 ==
LOC: ED 22:41 → PCU 23:43
PROVIDERS: Emergency Provider Emergency Medicine; PCP Internal Medicine; Visit Provider Internal Medicine
DX: I16.9 Hypertensive crisis, unspecified (principal); Q28.2 Arteriovenous malformation of cerebral vessels; Z68.43 Body mass index [BMI] 50.0-59.9, adult; I10 Essential (primary) hypertension; E66.01 Morbid (severe) obesity due to excess calories; I16.0 Hypertensive urgency; F90.9 Attention-deficit hyperactivity disorder, unspecified type; Z79.82 Long term (current) use of aspirin
CPT/HCPCS: 70496; 70498; 70553; 72125; 80048; 80061; 80307; 85025; 93306; 94762; 97165; 97802; 99284; A9575; J7030; Q9957; Q9967; A4216; C8929

== ENCOUNTER → 2023-11-23 | Outpatient (CLI) | payer BC, SELFPAY | END | disposition home or self-care (01) | LOC: PSN 08:16 | PROVIDERS: PCP Internal Medicine; Referring Provider Physician Assistant Medical; Visit Provider Physician Assistant Medical | DX: R20.0 Anesthesia of skin (principal); R20.2 Paresthesia of skin | CPT/HCPCS: 95819 ==